=== PATIENT | female | born 1970 | race Caucasian/White ===

== ENCOUNTER 2025-10-07 11:21 | Emergency (ER) | payer BC, SELFPAY ==
[2025-10-07 11:25] VITALS: BP 142/90
[2025-10-07] MEDS: TORADOL 60 MG IM (12:37)
--- NOTE | 2025-10-07 12:41 | ED.GENMED ---
History of Present Illness
General
Chief Complaint: Musculo-Skeletal Complaint
Source: patient
Exam Limitations: none
Time Seen by Provider: 10/07/25 12:08
History of Present Illness
History of Present Illness:
55-year-old female complaining of almost 2 weeks of right sided neck and shoulder pain. Has been seen by primary care and orthopedics. Was placed on 5 days of prednisone. No improvement. Now has some tingling in the upper arm and was recommended
to go to the ER
Past History
Past History
ED Past Medical History: Psychiatric and Other (GERD/overactive bladder)
ED Past Surgical History: Gynecological and Tonsilectomy
Review of Systems
Review of Systems
All Other Systems: Not applicable
Constitutional: Denies fever or chills
Respiratory: Reports no symptoms
Cardiac: Reports no symptoms
Phy Exam
Physical Exam
Physical Exam:
GENERAL: Alert and oriented in no apparent distress
EYE: Orbits normal.
NECK: Supple, no swelling. No point tenderness. Some mild pain with right lateral rotation
CARDIAC: Regular rate and rhythm
LUNGS: No respiratory distress
NEUROLOGICAL: Alert and oriented , grossly non-focal. 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 Interosseous intact. Flexion extension of the wrist intact. Abduction of the shoulder normal. Patient objectively has sensation but subjectively has some
slight tingling to the lateral mid forearm.
SKIN: Warm and dry, no rash or lesion, no discoloration, skin intact.
PSYCH: Normal and appropriate interaction.
Course
Orders/Labs/Results
Orders:
Orders
10/07/25 12:23
Ketorolac [Toradol] 60 mg IM NOW STA
10/07/25 12:24
CT Cervical Spine W/o Iv Contr Urgent
Comment:
Reason For Exam: Right sided neck pain with radiculopathy
Vital Signs
Initial and Last Documented VS:
Initial Vital Signs
Temp Pulse Resp BP Pulse Ox
98.2 F 78 16 142/90 98
10/07/25 11:25 10/07/25 11:25 10/07/25 11:10/07/25 11:25 10/07/25 11:25
Last Documented Vital Signs
Temp Pulse Resp BP Pulse Ox
98.2 F 78 18 142/90 98
10/07/25 11:25 10/07/25 11:25 10/07/25 12:45 10/07/25 11:10/07/25 12:44
MDM/Problems Addressed
Differential Diagnosis Includes:
Patient is describing a radiculopathy. No motor findings. Neurologically intact. Cannot get a stat MRI at this time for this indication. CT may add some value. Discussed with patient
*Radiology
Radiology exam reviewed: radiology read reviewed (Degenerative changes C5-C6 with mild to moderate spinal canal narrowing and osteophytes at C5-C6)
*Pulse Oximetry
SaO2: 98
Oxygen Mode of Delivery: Room air
Patient hypoxic: no (98)
*Critical Care Note
Total Time (30-74mins, 75-104mins- exclusive of procedures): Not Applicable
Update Note
Update Note:
Patient resting comfortably in no distress. Motor exam is unremarkable. All consistent with radiculopathy. Will try another course of steroids and follow-up with orthopedics
ED Attending Note
-
Portions of this chart may have been created with voice recognition software.� Occasional wrong word or��sound alike� substitutions may have occurred due to the inherent limitations of voice recognition software.
Discharge Plan
Departure
Patient Disposition: Home (Routine Discharge)
Date of Disposition: 10/07/25
Time of Disposition: 15:37
Patient with high blood pressure during this ER visit?: Yes
Discharge Problem:
Right cervical radiculopathy, Degenerative changes C5-C6
Instructions: Radiculopathy of the neck and back (including sciatica) (DC), BLOOD PRESSURE
Prescriptions:
New
prednisone 10 mg tablet
10 mg PO DAILY Qty: 30 0RF
Rx Instructions:
4 tablets day 1. Then 1 less tablet every third day until gone
Referrals:
Kimberly Dawn MD [Family Provider, Family Practice] - Follow up in 2-3 days
Wolfgang Cervantes MD [Active, Orthopedics] - Follow up in 5-7 days
Activity Restrictions/Additional Instructions:
Your prescription was sent to your pharmacy
Continue Advil or Motrin. Take it with food. It can upset your stomach along with the prednisone
You can also add Tylenol
Call your orthopedist for close follow-up
Interventions
Interventions:
*Risk Screen - Suicide Last Done: 10/07/25 11:25
*General Assessment Last Done: 10/07/25 12:45
*Neglect/Abuse Screening Last Done: 10/07/25 11:25
*ED- Fall Risk Assessment Last Done: 10/07/25 12:45
ED-Musculoskeletal Assessment Last Done: 10/07/25 12:45
Discharge Date and Time
Print Language: HEBREW
[2025-10-07 15:38] VITALS: BP 141/65
[2025-10-07] MEDS: DELTASONE 50 MG PO (15:51)
== END 2025-10-07 15:56 | disposition home or self-care (01) ==
LOC: EMR 11:21
PROVIDERS: EMERGENCY PHYSICIAN Emergency Medicine; FAMILY PHYSICIAN Family Medicine
DX: M47.22 Other spondylosis with radiculopathy, cervical region (principal); K21.9 Gastro-esophageal reflux disease without esophagitis; N32.81 Overactive bladder
CPT/HCPCS: 99284; 96372; 72125